=== PATIENT | male | born 2000 | race Caucasian/White ===

== ENCOUNTER 2022-05-22 19:56 | Emergency (ER) | payer BC, OTHER ==
[~2022-05-22] VITALS: Ht 199 cm; Wt 136.4 kg
[2022-05-22] MEDS ORDERED: ANTACID SUSP 30 ML UDC (MYLANTA) PO ONE (21:30)
[2022-05-22 21:39] LABS: BASOPHILS % (AUTO) 1 % (0-10); EOSINOPHILS # (AUTO) 0.1 10^3/uL (0.0-0.3); EOSINOPHILS % (AUTO) 1 % (0-10); HEMATOCRIT 42 % (40-54); HEMOGLOBIN 14.5 g/dL (13.3-17.7); LYMPHOCYTES # (AUTO) 1.6 10^3/uL (1.0-4.0); LYMPHOCYTES % (AUTO) 21 % (12-44); MEAN CORPUSCULAR HEMOGLOBIN 27 pg (25-34); MEAN CORPUSCULAR HGB CONC 34 g/dL (32-36); MEAN CORPUSCULAR VOLUME 79 fL (80-99); MEAN PLATELET VOLUME 9.8 fL (9.0-12.2); MONOCYTES # (AUTO) 0.5 10^3/uL (0.0-1.0); MONOCYTES % (AUTO) 7 % (0-12); NEUTROPHILS # (AUTO) 5.6 10^3/uL (1.8-7.8); NEUTROPHILS % (AUTO) 71 % (42-75); PLATELET COUNT 350 10^3/uL (130-400); WHITE BLOOD COUNT 7.8 10^3/uL (4.3-11.0)
[2022-05-22 21:45] LABS: BILIRUBIN,URINE NEGATIVE (NEGATIVE); CLARITY,URINE CLEAR; COLOR,URINE YELLOW; GLUCOSE, URINE (UA) NEGATIVE (NEGATIVE); KETONES,URINE NEGATIVE (NEGATIVE); LEUKOCYTE ESTERASE ,URINE NEGATIVE (NEGATIVE); NITRITE,URINE NEGATIVE (NEGATIVE); PH,URINE 6.5 (5-9); PROTEIN,URINE NEGATIVE (NEGATIVE)
[2022-05-22 21:48] LABS: ALBUMIN 4.5 GM/DL (3.2-4.5)
[2022-05-22 21:49] LABS: POTASSIUM 4.6 MMOL/L (3.6-5.0)
[2022-05-22 21:50] LABS: BACTERIA,URINE NEGATIVE /HPF
[2022-05-22 21:50] LABS: CALCIUM 10.2 MG/DL (8.5-10.1)
[2022-05-22 21:51] LABS: TOTAL PROTEIN 7.4 GM/DL (6.4-8.2)
[2022-05-22 21:53] LABS: BILIRUBIN,TOTAL 0.3 MG/DL (0.1-1.0)
[2022-05-22 21:55] LABS: CREATININE SERUM 1.01 MG/DL (0.60-1.30)
[2022-05-22] MEDS ORDERED: OMEP40CA6 PO (22:12)
--- NOTE | 2022-05-22 22:12 | ED Abdominal Pain ---
General Chief Complaint: Abdominal/GI Problems Stated Complaint: CHEST/ABD PAIN Nursing Triage Note: PT STATES HE THINKS HE ATE SOMETHING BAD, HAS HAD UPPER ABD PAIN/TIGHTNESS, NAUSEA AND DIARRHEA SINCE LAST NIGHT. Source of Information: Patient Exam Limitations: No Limitations (OBIE JUARES APRN) History of Present Illness Date Seen by Provider: May 22, 2022 Time Seen by Provider: 20:15 Initial Comments Patient is a previously 21-year-old male who presents to the emergency department with some stomach and substernal burning as well as some nausea and diarrhea. Patient states his symptoms began last night. He states he thinks he ate something bad. He states he has had similar symptoms in the past that usually self resolved. Patient denies any fever. Patient states his symptoms do worsen when he lies flat. Denies any frequent belching. (OBIE JUARES APRN) Allergies and Home Medications Allergies Coded Allergies: No Known Drug Allergies (Unverified , 05/22/22) Patient Home Medication List Home Medication List Reviewed: Yes (OBIE JUARES APRN) Omeprazole (Omeprazole) 40 Mg Capsule.dr, 40 MG PO DAILY Prescribed by: Obie Juares on 05/22/222211 Review of Systems Review of Systems Constitutional: no symptoms reported EENTM: No Symptoms Reported Respiratory: No Symptoms Reported Cardiovascular: No Symptoms Reported Gastrointestinal: See HPI, Abdominal Pain, Diarrhea, Nausea Genitourinary: No Symptoms Reported Musculoskeletal: no symptoms reported Skin: no symptoms reported Psychiatric/Neurological: No Symptoms Reported Endocrine: No Symptoms Reported Hematologic/Lymphatic: No Symptoms Reported (OBIE JUARES APRN) Past Rysgvbe-Tetfpp-Grnbly Hx Patient Social History Tobacco Use?: No Substance use?: No Alcohol Use?: Yes Alcohol Frequency: Several times a month (OBIE JUARES APRN) Immunizations Up To Date Influenza Vaccine Up-to-Date: Yes; Up-to-Date (OBIE JUARES APRN) Physical Exam Vital Signs Vital Signs - First Documented 05/22/22 05/22/22 20:15 22:15 Temp 36.6 Pulse 76 Resp 16 B/P (MAP) 192/89 (123) Pulse Ox 100 O2 Delivery Room Air (ELVIRA SANDY MD) Vital Signs Capillary Refill : (OBIE JUARES APRN) Height/Weight/BMI Height: '" Weight: lbs. oz. kg; 34.00 BMI Method: General Appearance: WD/WN, no apparent distress HEENT: PERRL/EOMI, normal ENT inspection, TMs normal, pharynx normal Neck: non-tender, full range of motion, supple, normal inspection Respiratory: chest non-tender, lungs clear, normal breath sounds, no respiratory distress, no accessory muscle use Cardiovascular: regular rate, rhythm Gastrointestinal: non tender, soft Neurologic/Psychiatric: no motor/sensory deficits, alert, normal mood/affect, oriented x 3 Skin: normal color, warm/dry (JUARES,OBIE WOOLING MACHINE OPERATOR) Progress/Results/Core Measures Results/Orders Lab Results Laboratory Tests Test 05/22/22 21:20 05/22/22 21:32 Range/Units Urine Color YELLOW Urine Clarity CLEAR Urine pH 6.5 5-9 Urine Specific [place] 1.010 L 1.016-1.022 Urine Protein NEGATIVE NEGATIVE Urine Glucose (UA) NEGATIVE NEGATIVE Urine Ketones NEGATIVE NEGATIVE Urine Nitrite NEGATIVE NEGATIVE Urine Bilirubin NEGATIVE NEGATIVE Urine Urobilinogen 0.2 < = 1.0 MG/DL Urine Leukocyte Esterase NEGATIVE NEGATIVE Urine RBC (Auto) NEGATIVE NEGATIVE Urine RBC NONE /HPF Urine WBC NONE /HPF Urine Squamous Epithelial Cells NONE /HPF Urine Renal Epithelial Cells NONE /HPF Urine Crystals NONE /LPF Urine Bacteria NEGATIVE /HPF Urine Casts NONE /LPF Urine Mucus NEGATIVE /LPF Urine Culture Indicated NO White Blood Count 7.8 4.3-11.0 10^3/uL Red Blood Count 5.34 4.30-5.52 10^6/uL Hemoglobin 14.5 13.3-17.7 g/dL Hematocrit 42 40-54 % Mean Corpuscular Volume 79 L 80-99 fL Mean Corpuscular Hemoglobin 27 25-34 pg Mean Corpuscular Hemoglobin Concent 34 32-36 g/dL Red Cell Distribution Width 12.6 10.0-14.5 % Platelet Count 350 130-400 10^3/uL Mean Platelet Volume 9.8 9.0-12.2 fL Immature Granulocyte % (Auto) 0 % Neutrophils (%) (Auto) 71 42-75 % Lymphocytes (%) (Auto) 21 12-44 % Monocytes (%) (Auto) 7 0-12 % Eosinophils (%) (Auto) 1 0-10 % Basophils (%) (Auto) 1 0-10 % Neutrophils # (Auto) 5.6 1.8-7.8 10^3/uL Lymphocytes # (Auto) 1.6 1.0-4.0 10^3/uL Monocytes # (Auto) 0.5 0.0-1.0 10^3/uL Eosinophils # (Auto) 0.1 0.0-0.3 10^3/uL Basophils # (Auto) 0.0 0.0-0.1 10^3/uL Immature Granulocyte # (Auto) 0.0 0.0-0.1 10^3/uL Sodium Level 138 135-145 MMOL/L Potassium Level 4.6 3.6-5.0 MMOL/L Chloride Level 105 98-107 MMOL/L Carbon Dioxide Level 24 21-32 MMOL/L Anion Gap 9 5-14 MMOL/L Blood Urea Nitrogen 14 7-18 MG/DL Creatinine 1.01 0.60-1.30 MG/DL Estimat Glomerular Filtration Rate 109 BUN/Creatinine Ratio 14 Glucose Level 97 70-105 MG/DL Calcium Level 10.2 H 8.5-10.1 MG/DL Corrected Calcium 9.8 8.5-10.1 MG/DL Total Bilirubin 0.3 0.1-1.0 MG/DL Aspartate Amino Transf (AST/SGOT) 26 5-34 U/L Alanine Aminotransferase (ALT/SGPT) 41 0-55 U/L Alkaline Phosphatase 108 40-136 U/L Total Protein 7.4 6.4-8.2 GM/DL Albumin 4.5 3.2-4.5 GM/DL Lipase 33 8-78 U/L (ELVIRA SANDY MD) Vital Signs/I&O 05/22/22 05/22/22 20:15 22:15 Temp 36.6 36.6 Pulse 76 74 Resp 16 16 B/P (MAP) 192/89 (123) 165/65 Pulse Ox 100 99 O2 Delivery Room Air (ELVIRA SANDY MD) Blood Pressure Mean: 123 Progress Progress Note : Progress Note Patient is nontoxic and well-hydrated on exam. Labs are reassuring. Abdominal exam is reassuring without focal provocation of pain or rigidity/distention. Symptoms are very consistent with GERD. Patient states his symptoms are much better now than they were just prior to arrival to the ER. Patient was given a dose of Maalox with further improvement in symptoms. Laboratory evaluation was unremarkable. Urinalysis unremarkable. Will discharge home with recommendations for supportive care and close follow-up with PCP. Return precautions for urgent symptomology discussed. Patient verbalized understanding. (OBIE JUARES APRN) Departure Impression Primary Impression: GERD (gastroesophageal reflux disease) Qualified Codes: K21.9 - Gastro-esophageal reflux disease without esophagitis Disposition: HOME, SELF-CARE Condition: Stable Departure-Patient Inst. Decision time for Depature: 22:05 (OBIE JUARES APRN) Referrals: NO,LOCAL PHYSICIAN (PCP/Family) Primary Care Physician Patient Instructions: Acid Reflux and GERD in Adults (DC) Scripts Omeprazole (Omeprazole) 40 Mg Capsule.dr 40 MG PO DAILY for 14 Days, #14 CAP 0 Refills Prov: OBIE JUARES APRN 05/22/22 ATTENDING PHYSICIAN NOTE: I was physically present as attending physician in the emergency department d uring the care of this patient, but I was not directly involved in the decision making or delivery of care for this patient. (ELVIRA SANDY MD) OBIE JUARES APRN May 22, 2022 22:12 ELVIRA SANDY MD May 24, 2022 05:38
[2022-05-22 22:15] VITALS: BP 165/65
== END 2022-05-22 22:16 | disposition home or self-care (01) ==
LOC: ER 20:00
DX: K21.9 Gastro-esophageal reflux disease without esophagitis (principal); Z28.311 Partially vaccinated for COVID-19
CPT/HCPCS: 36415; 80053; 81000; 83690; 85025

== ENCOUNTER 2022-05-27 01:58 | Emergency (ER) | payer BC ==
[~2022-05-27] VITALS: Ht 200.6 cm; Wt 136.0 kg
[~2022-05-27 01:58] MED LIST: OMEP40CA6 PO
[2022-05-27 02:26] LABS: BASOPHILS # (AUTO) 0.1 10^3/uL (0.0-0.1); BASOPHILS % (AUTO) 1 % (0-10); EOSINOPHILS # (AUTO) 0.2 10^3/uL (0.0-0.3); EOSINOPHILS % (AUTO) 1 % (0-10); HEMATOCRIT 47 % (40-54); HEMOGLOBIN 16.4 g/dL (13.3-17.7); LYMPHOCYTES # (AUTO) 4.6 10^3/uL (1.0-4.0); LYMPHOCYTES % (AUTO) 42 % (12-44); MEAN CORPUSCULAR HEMOGLOBIN 27 pg (25-34); MEAN CORPUSCULAR HGB CONC 35 g/dL (32-36); MEAN CORPUSCULAR VOLUME 78 fL (80-99); MONOCYTES # (AUTO) 0.8 10^3/uL (0.0-1.0); MONOCYTES % (AUTO) 8 % (0-12); NEUTROPHILS # (AUTO) 5.3 10^3/uL (1.8-7.8); NEUTROPHILS % (AUTO) 48 % (42-75); PLATELET COUNT 390 10^3/uL (130-400); WHITE BLOOD COUNT 10.9 10^3/uL (4.3-11.0)
--- NOTE | 2022-05-27 02:27 | ED Chest Pain ---
General Stated Complaint: CHEST PAIN Source: patient History of Present Illness Date Seen by Provider: May 27, 2022 Time Seen by Provider: 02:07 Initial Comments PT ARRIVES VIA POV FROM HOME C/O CHEST PAIN SINCE Tuesday PAIN IS SHARP AND STABBING, AND IS IN HIS LEFT UPPER CHEST, IN HIS ENTIRE BACK, AND HIS LEFT ARM HE STATES THAT ON TUESDAY WHEN IT BEGAN, HE WAS LIGHTHEADED AND FEELS VERY FATIGUED SINCE THEN HAS HAS HAD A SLIGHT COUGH AND THINKS HE MIGHT BE A LITTLE BIT SHORT OF BREATH, BUT HE IS NOT SURE IF HE FEELS SHORT OF BREATH OR NOT. STATES HE FEELS A LITTLE CONGESTED AND HIS THROAT IS A LITTLE SORE NO FEVER NO SWEATS SLIGHT NAUSEA, NO VOMITING NOTHING WORSENS OR IMPROVES PAIN HE WAS SEEN HERE ON TUESDAY NIGHT, AND LAB. 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 HE DID WORK OUT REALLY HARD LAST WEEK, BUT HAS NOT WORKED OUT VERY HARD THIS WEEK. EXERCISE DOES NOT WORSEN OR BRING ON THESE SYMPTOMS. HE DENIES TAKING ANY SUPPLEMENTS, DENIES CAFFEINE USE OR ANY ENERGY DRINKS/SUPPLEMENTS PT HAS HAD COVID VACCINE X 1 OVER 1 YEAR AGO. PT IS [employer] STUDENT FROM [employer] Allergies and Home Medications Allergies Coded Allergies: No Known Drug Allergies (Unverified , 05/22/22) Patient Home Medication List Home Medication List Reviewed: Yes Omeprazole (Omeprazole) 40 Mg , 40 MG PO DAILY Prescribed by: Magno Juares on 05/22/222211 Review of Systems Review of Systems Constitutional: no symptoms reported EENTM: No Symptoms Reported Respiratory: No Symptoms Reported Cardiovascular: See HPI Gastrointestinal: No Symptoms Reported Genitourinary: No Symptoms Reported Musculoskeletal: see HPI Skin: no symptoms reported Psychiatric/Neurological: No Symptoms Reported Endocrine: No Symptoms Reported Hematologic/Lymphatic: No Symptoms Reported Past Cmfeowa-Hspcqr-Eskzmq Hx Patient Social History Tobacco Use?: No Substance use?: No Alcohol Use?: Yes Alcohol Frequency: Couple times a week Past Medical History Surgeries: No Respiratory: No Cardiac: No Neurological: No Genitourinary: No Gastrointestinal: No Musculoskeletal: No Endocrine: No HEENT: No Cancer: No Psychosocial: No Integumentary: No Blood Disorders: No Physical Exam Vital Signs Vital Signs - First Documented 05/27/22 02:10 Temp 36.4 Pulse 75 Resp 20 B/P (MAP) 157/104 (121) Pulse Ox 100 O2 Delivery Room Air Capillary Refill : Height, Weight, BMI Height: '" Weight: lbs. oz. kg; 34.00 BMI Method: General Appearance: No Apparent Distress, WD/WN HEENT: No Scleral Icterus (L) Neck: Normal Inspection Respiratory: Normal Breath Sounds, No Accessory Muscle Use, No Respiratory Distress, Other (SLIGHT TENDERNESS TO PALPATION OF CHEST) Cardiovascular: Regular Rate, Rhythm, No Edema, No JVD, No Murmur, Normal Peripheral Pulses Gastrointestinal: Non Tender, Soft Extremity: Normal Capillary Refill, Normal Range of Motion, Non Tender, No Calf Tenderness, Other (BACK IS NOT TENDER TO PALPATION OR WITH MOVEMENT. 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 Norm as Tested Skin: Normal Color, Warm/Dry Progress/Results/Core Measures Results/Orders Lab Results Laboratory Tests Test 05/27/22 02:17 05/27/22 03:00 Range/Units White Blood Count 10.9 4.3-11.0 10^3/uL Red Blood Count 6.04 H 4.30-5.52 10^6/uL Hemoglobin 16.4 13.3-17.7 g/dL Hematocrit 47 40-54 % Mean Corpuscular Volume 78 L 80-99 fL Mean Corpuscular Hemoglobin 27 25-34 pg Mean Corpuscular Hemoglobin Concent 35 32-36 g/dL Red Cell Distribution Width 12.6 10.0-14.5 % Platelet Count 390 130-400 10^3/uL Mean Platelet Volume 10.0 9.0-12.2 fL Immature Granulocyte % (Auto) 0 % Neutrophils (%) (Auto) 48 42-75 % Lymphocytes (%) (Auto) 42 12-44 % Monocytes (%) (Auto) 8 0-12 % Eosinophils (%) (Auto) 1 0-10 % Basophils (%) (Auto) 1 0-10 % Neutrophils # (Auto) 5.3 1.8-7.8 10^3/uL Lymphocytes # (Auto) 4.6 H 1.0-4.0 10^3/uL Monocytes # (Auto) 0.8 0.0-1.0 10^3/uL Eosinophils # (Auto) 0.2 0.0-0.3 10^3/uL Basophils # (Auto) 0.1 0.0-0.1 10^3/uL Immature Granulocyte # (Auto) 0.0 0.0-0.1 10^3/uL Sodium Level 139 135-145 MMOL/L Potassium Level 4.0 3.6-5.0 MMOL/L Chloride Level 102 98-107 MMOL/L Carbon Dioxide Level 25 21-32 MMOL/L Anion Gap 12 5-14 MMOL/L Blood Urea Nitrogen 15 7-18 MG/DL Creatinine 1.22 0.60-1.30 MG/DL Estimat Glomerular Filtration Rate 87 BUN/Creatinine Ratio 12 Glucose Level 94 70-105 MG/DL Calcium Level 10.2 H 8.5-10.1 MG/DL Corrected Calcium 8.5-10.1 MG/DL Magnesium Level 1.7 1.6-2.4 MG/DL Total Bilirubin 0.3 0.1-1.0 MG/DL Aspartate Amino Transf (AST/SGOT) 24 5-34 U/L Alanine Aminotransferase (ALT/SGPT) 45 0-55 U/L Alkaline Phosphatase 114 40-136 U/L Total Creatine Kinase 87 30-200 U/L Creatine Kinase MB 0.8 <6.6 NG/ML Troponin I < 0.028 <0.028 NG/ML B-Type Natriuretic Peptide < 10.0 <100.0 PG/ML Total Protein 8.0 6.4-8.2 GM/DL Albumin 4.9 H 3.2-4.5 GM/DL Amylase Level 66 25-125 U/L Lipase 41 8-78 U/L Serum Alcohol < 10 <10 MG/DL Influenza Type A (RT-PCR) Not Detected Not Detecte Influenza Type B (RT-PCR) Not Detected Not Detecte SARS-CoV-2 RNA (RT-PCR) Not Detected Not Detecte Urine Color YELLOW Urine Clarity CLEAR Urine pH 6.5 5-9 Urine Specific [place] 1.020 1.016-1.022 Urine Protein NEGATIVE NEGATIVE Urine Glucose (UA) NEGATIVE NEGATIVE Urine Ketones NEGATIVE NEGATIVE Urine Nitrite NEGATIVE NEGATIVE Urine Bilirubin NEGATIVE NEGATIVE Urine Urobilinogen 0.2 < = 1.0 MG/DL Urine Leukocyte Esterase NEGATIVE NEGATIVE Urine RBC (Auto) NEGATIVE NEGATIVE Urine RBC NONE /HPF Urine WBC NONE /HPF Urine Squamous Epithelial Cells RARE /HPF Urine Crystals NONE /LPF Urine Bacteria NEGATIVE /HPF Urine Casts NONE /LPF Urine Mucus NEGATIVE /LPF Urine Culture Indicated NO Urine Opiates Screen NEGATIVE NEGATIVE Urine Oxycodone Screen NEGATIVE NEGATIVE Urine Methadone Screen NEGATIVE NEGATIVE Urine Propoxyphene Screen NEGATIVE NEGATIVE Urine Barbiturates Screen NEGATIVE NEGATIVE Ur Tricyclic Antidepressants Screen NEGATIVE NEGATIVE Urine Phencyclidine Screen NEGATIVE NEGATIVE Urine Amphetamines Screen NEGATIVE NEGATIVE Urine Methamphetamines Screen NEGATIVE NEGATIVE Urine Benzodiazepines Screen NEGATIVE NEGATIVE Urine Cocaine Screen NEGATIVE NEGATIVE Urine Cannabinoids Screen NEGATIVE NEGATIVE My Orders Orders - JANELL BOYER DO Ekg Tracing (05/27/22 02:09) Ed Iv/Invasive Line Start (05/27/22 02:12) Monitor-Rhythm Ecg Trace Only (05/27/22 02:12) Alcohol (05/27/22 02:12) Amylase (05/27/22 02:12) Bnp [place] (05/27/22 02:12) Cbc With Automated Diff (05/27/22 02:12) Comprehensive Metabolic Panel (05/27/22 02:12) Creatine Kinase (05/27/22 02:12) Creatine Kinase Mb (05/27/22 02:12) Drug Screen Stat (Urine) (05/27/22 02:12) Lipase (05/27/22 02:12) Magnesium (05/27/22 02:12) Ua Culture If Indicated (05/27/22 02:12) Troponin I [place] (05/27/22 02:12) Chest 1 View, Ap/Pa Only (05/27/22 02:12) Ed Iv/Invasive Line Start (05/27/22 02:12) Covid 19 Inhouse Test (05/27/22 02:12) Influenza A And B By Pcr (05/27/22 02:12) Isolation Central Supply Req (05/27/22 02:12) Ketorolac Injection (Toradol Injection) (05/27/22 02:30) Lidocaine 2% Viscous 15 Ml (Xylocaine Vi (05/27/22 03:45) Antacid Suspension (Mylanta Suspension (05/27/22 03:45) Medications Given in ED Current Medications Medications Dose Ordered Sig/Sharon Route Start Time Stop Time Status Last Admin Dose Admin Ketorolac Tromethamine 30 mg ONCE ONCE IVP 05/27/22 02:30 05/27/22 02:31 DC 05/27/22 02:47 30 MG Vital Signs/I&O 05/27/22 02:10 Temp 36.4 Pulse 75 Resp 20 B/P (MAP) 157/104 (121) Pulse Ox 100 O2 Delivery Room Air Progress Progress Note : Progress Note GIVEN TORADAL WITH IMPROVEMENT IN PAIN UNEVENTFUL ER STAY REVIEWED TEST RESULTS, DISCUSSED SYMPTOMATIC TREATMENT, NEED FOR FOLLOW UP WITH [employer] [facility] AND RETURN PRECAUTIONS Initial ECG Impression Date: May 27, 2022 Initial ECG Impression Time: 02:12 Initial ECG Rate: 93 Initial ECG Rhythm: Normal Sinus Diagnostic Imaging Comments CXR--NO ACUTE PROCESS, PENDING RADIOLOGIST REVIEW Reviewed: Reviewed by Me Departure Impression Primary Impression: Anxiety Additional Impressions: GERD SYMPTOMS Chest wall pain Disposition: 01 HOME, SELF-CARE Condition: Stable Departure-Patient Inst. Decision time for Depature: 03:36 Referrals: NO,LOCAL PHYSICIAN (PCP) Primary Care Physician CALI ANN MD Patient Instructions: Chest Pain, Adult ED, Anxiety, Adult ED, Costochondritis (DC) Add. Discharge Instructions: HOME, REST CONTINUE OMEPRAZOLE AVOID ALCOHOL FOLLOW UP WITH [employer] [facility] TODAY OR TOMORROW FOR FURTHER CARE, RETURN TO ER IF SYMPTOMS WORSEN JANELL BOYER DO May 27, 2022 02:27
[2022-05-27] MEDS ORDERED: KETOROLAC 30 MG/ML VIAL IVP ONE (02:30)
[2022-05-27 02:36] LABS: ALBUMIN 4.9 GM/DL (3.2-4.5); CHLORIDE 102 MMOL/L (98-107); SODIUM 139 MMOL/L (135-145)
[2022-05-27 02:38] LABS: AMYLASE 66 U/L (25-125); CALCIUM 10.2 MG/DL (8.5-10.1)
[2022-05-27 02:39] LABS: GLUCOSE 94 MG/DL (70-105)
[2022-05-27 02:40] LABS: BILIRUBIN,TOTAL 0.3 MG/DL (0.1-1.0); CARBON DIOXIDE 25 MMOL/L (21-32)
[2022-05-27 02:42] LABS: ALKALINE PHOSPHATASE 114 U/L (40-136); CREATININE SERUM 1.22 MG/DL (0.60-1.30); GFR ESTIMATED 87
[2022-05-27 02:43] LABS: BUN/CREATININE RATIO 12
[2022-05-27 02:45] LABS: ALANINE AMINOTRANSFERASE 45 U/L (0-55); MAGNESIUM 1.7 MG/DL (1.6-2.4)
[2022-05-27 02:47] LABS: CREATINE KINASE 87 U/L (30-200); LIPASE 41 U/L (8-78)
[2022-05-27 02:52] LABS: CREATINE KINASE MB 0.8 NG/ML (<6.6)
[2022-05-27 03:14] LABS: BILIRUBIN,URINE NEGATIVE (NEGATIVE); CLARITY,URINE CLEAR; COLOR,URINE YELLOW; GLUCOSE, URINE (UA) NEGATIVE (NEGATIVE); KETONES,URINE NEGATIVE (NEGATIVE); LEUKOCYTE ESTERASE ,URINE NEGATIVE (NEGATIVE); NITRITE,URINE NEGATIVE (NEGATIVE); PH,URINE 6.5 (5-9); PROTEIN,URINE NEGATIVE (NEGATIVE)
[2022-05-27 03:20] LABS: BACTERIA,URINE NEGATIVE /HPF; SQUAMOUS EPITHELIAL CELL,UR RARE /HPF
[2022-05-27 03:32] LABS: AMPHETAMINE SCREEN, URINE NEGATIVE (NEGATIVE); BARBITURATE SCREEN URINE NEGATIVE (NEGATIVE); BENZODIAZEPINES SCREEN URINE NEGATIVE (NEGATIVE); CANNABINOID SCREEN, URINE NEGATIVE (NEGATIVE); COCAINE SCREEN URINE NEGATIVE (NEGATIVE); METHADONE STAT NEGATIVE (NEGATIVE); OPIATE SCREEN URINE NEGATIVE (NEGATIVE); OXYCODONE STAT NEGATIVE (NEGATIVE); PROPOXYPHENE STAT NEGATIVE (NEGATIVE); TRICYCLIC ANTIDEPRESSANTS SCRE NEGATIVE (NEGATIVE)
[2022-05-27] MEDS ORDERED: LIDOCAINE 2% VISCOUS 15 ML UDC PO ONE (03:45)
[2022-05-27] MEDS ORDERED: ANTACID SUSP 30 ML UDC (MYLANTA) PO ONE (03:45)
[2022-05-27 03:50] VITALS: BP 154/97
--- NOTE | 2022-05-27 06:09 | Diagnostic Imaging Report ---
EXAMINATION: Chest 1 view HISTORY: Chest pain COMPARISON: None available. FINDINGS: Heart size and pulmonary vasculature are normal. The lungs are clear without consolidation, pleural effusion, or pneumothorax. The osseous structures are intact. IMPRESSION: 1. No acute radiographic abnormality in the chest. Dictated by: Dictated on workstation # [id number]
== END 2022-05-27 03:50 | disposition home or self-care (01) ==
LOC: EDUNIT# 01:58 → ER 02:01
DX: F41.9 Anxiety disorder, unspecified (principal); K21.9 Gastro-esophageal reflux disease without esophagitis; Z28.311 Partially vaccinated for COVID-19; Z20.822 Contact with and (suspected) exposure to COVID-19
CPT/HCPCS: 36415; 71045; 80053; 80306; 80320; 81000; 82150; 82550; 82553; 83690; 83735; 83880; 84484; 85025; 87636; 93005; 93041